=== PATIENT | male | born 1995 | race Caucasian/White ===

== ENCOUNTER 2016-08-14 12:11 | Emergency (ER) | payer MEDICAID, OTHER ==
[~2016-08-14] VITALS: Ht 167.6 cm; Wt 77.1 kg
[2016-08-14 12:25] VITALS: BP 137/78
--- NOTE | 2016-08-14 12:29 | NUR ---
Patient ambulated to bed 07.
--- NOTE | 2016-08-14 12:34 | NUR ---
XRAY at bedside.
[2016-08-14] MEDS ORDERED: ACETAMINOPHEN EXTRA STRENGTH 500 MG TAB PO ONE (12:35)
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
[2016-08-14] MEDS ORDERED: ACETAMINOPHEN EXTRA STRENGTH 500 MG TAB ONE (12:57)
[2016-08-14 13:41] VITALS: BP 128/72
== END 2016-08-14 13:41 | disposition home or self-care (01) ==
LOC: MED 12:20
DX: S16.1XXA Strain of muscle, fascia and tendon at neck level, initial encounter (principal); S46.912A Strain of unspecified muscle, fascia and tendon at shoulder and upper arm level, left arm, initial encounter; S46.911A Strain of unspecified muscle, fascia and tendon at shoulder and upper arm level, right arm, initial encounter; S20.219A Contusion of unspecified front wall of thorax, initial encounter; R03.0 Elevated blood-pressure reading, without diagnosis of hypertension; V89.2XXA Person injured in unspecified motor-vehicle accident, traffic, initial encounter; Y93.89 Activity, other specified; Y92.89 Other specified places as the place of occurrence of the external cause; Y99.8 Other external cause status
CPT/HCPCS: 71010; 99283; Q0092

== ENCOUNTER 2018-05-20 15:28 | Emergency (ER) | payer MEDICAID, OTHER ==
[~2018-05-20] VITALS: Ht 167.6 cm; Wt 86.2 kg
--- NOTE | 2018-05-20 15:30 | NUR ---
PATIENT IS A 22 Y/O MALE WHO PRESENTS TO THE ED C/O COLD SYMPTOMS. PT STATES THAT HE HAS BEEN COUGHING AND REPORTING FEVERS. PT REPORTS 7/10 ACHING LUNG PAIN. LUNG SOUNDS CLEAR BL. PT DENIES CP, SOB, N/V/D. PT AWAKE AND ALERT, RR EVEN/UNLABORED. PT REPOSITIONED FOR COMFORT, BED IN LOWEST POSITION. ER MD DR. WATKINS NOTIFIED. WILL CONTINUE TO MONITOR.
[2018-05-20 15:32] VITALS: BP 134/74
--- NOTE | 2018-05-20 15:32 | NUR ---
PATIENT AMBULATED TO ER BED 3.
[2018-05-20 16:35] VITALS: BP 128/62
--- NOTE | 2018-05-20 16:35 | NUR ---
Patient discharged with v/s stable. Written and verbal after care instructions given and explained. Patient alert, oriented and verbalized understanding of instructions. Ambulatory with steady gait. All questions addressed prior to discharge. ID band removed. Patient advised to follow up with PMD. Rx of IBUPROFEN 400MG AND PROMETHAZINE 6.25MG-15MG/5ML given. Patient educated on indication of medication including possible reaction and side effects. Opportunity to ask questions provided and answered.
== END 2018-05-20 16:35 | disposition home or self-care (01) ==
LOC: MED 15:28
DX: J06.9 Acute upper respiratory infection, unspecified (principal)
CPT/HCPCS: 99283

== ENCOUNTER 2018-07-07 13:08 | Emergency (ER) | payer SELFPAY ==
[~2018-07-07] VITALS: Ht 167.6 cm; Wt 83.9 kg
--- NOTE | 2018-07-07 13:11 | NUR ---
PT AMBULATES TO BED 3
[2018-07-07 13:13] VITALS: BP 132/84
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
[2018-07-07] MEDS ORDERED: IBUPROFEN 800 MG TAB PO ONE (13:55)
[2018-07-07] MEDS ORDERED: traMADol 50 MG TAB PO ONE (13:55)
--- NOTE | 2018-07-07 13:56 | NUR ---
Patient being evaluated by physician at bedside.
--- NOTE | 2018-07-07 14:03 | NUR ---
RADIOLOGY AT BEDSIDE
[2018-07-07 16:31] VITALS: BP 130/81
== END 2018-07-07 16:31 | disposition home or self-care (01) ==
LOC: MED 13:08
DX: M25.512 Pain in left shoulder (principal); M25.562 Pain in left knee; R07.81 Pleurodynia; W01.198A Fall on same level from slipping, tripping and stumbling with subsequent striking against other object, initial encounter; Y93.01 Activity, walking, marching and hiking; Y92.511 Restaurant or cafe as the place of occurrence of the external cause; Y99.8 Other external cause status
CPT/HCPCS: 71101; 73030; 73562; 99283

== ENCOUNTER 2020-11-22 13:46 | Emergency (ER) | payer MEDICAID ==
[~2020-11-22] VITALS: Ht 167.6 cm; Wt 86.2 kg
[2020-11-22 13:55] VITALS: BP 116/69
[2020-11-22] MEDS ORDERED: DEXAMETHASONE 10 MG/ML VIAL IM ONE (14:00)
[2020-11-22] MEDS ORDERED: diphenhydrAMINE 50 MG/ML VIAL IM ONE (14:00)
[2020-11-22] MEDS ORDERED: DIPH25TA53 PO (14:08)
[2020-11-22] MEDS ORDERED: FAMO-92 PO (14:08)
[2020-11-22 14:32] VITALS: BP 116/69
== END 2020-11-22 14:32 | disposition home or self-care (01) ==
LOC: MED 13:46
DX: T78.40XA Allergy, unspecified, initial encounter (principal); Z79.899 Other long term (current) drug therapy; X58.XXXA Exposure to other specified factors, initial encounter
CPT/HCPCS: 96372; 99284; J1100; J1200

== ENCOUNTER 2021-10-31 08:13 | Emergency (ER) | payer MEDICAID, OTHER ==
[~2021-10-31] VITALS: Ht 165.1 cm; Wt 93.2 kg
[~2021-10-31 08:13] MED LIST: DIPH25TA53 PO; FAMO-92 PO
[2021-10-31 08:17] VITALS: BP 148/92
[2021-10-31] MEDS ORDERED: NAPR-54 PO (10:33)
--- NOTE | 2021-10-31 10:42 | NUR ---
Patient ambulated with steady gait from [facility] to bed 7.
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
--- NOTE | 2021-10-31 10:48 | NUR ---
PT TAKEN TO CT VIA WHEELCHAIR
[2021-10-31 11:30] VITALS: BP 140/88
== END 2021-10-31 11:30 | disposition home or self-care (01) ==
LOC: MED 08:13
DX: T18.9XXA Foreign body of alimentary tract, part unspecified, initial encounter (principal); R09.89 Other specified symptoms and signs involving the circulatory and respiratory systems; F12.90 Cannabis use, unspecified, uncomplicated; Z03.821 Encounter for observation for suspected ingested foreign body ruled out; Z72.89 Other problems related to lifestyle; X58.XXXA Exposure to other specified factors, initial encounter; Y92.89 Other specified places as the place of occurrence of the external cause; Y93.89 Activity, other specified; Y99.8 Other external cause status
CPT/HCPCS: 70360; 70490; 71045; 99284